=== PATIENT | female | born 1965 | race American Indian/Alaskan Native ===

== ENCOUNTER 2016-12-14 16:02 | Inpatient (IN) | payer BC ==
[2016-12-14 18:49] LABS: RBC URINE 3 /hpf (0-3); URINE BACTERIA RARE (<OCC); URINE BILIRUBIN NEGATIVE (NEGATIVE); URINE BLOOD NEGATIVE (NEGATIVE); URINE COLOR Yellow (YELLOW); URINE GLUCOSE (UA) NORMAL (Normal); URINE KETONE TRACE mg/dL (NEGATIVE); URINE LEUKOCYTE ESTERASE NEG Leu/uL (Negative); URINE PROTEIN NEGATIVE (NEGATIVE); WBC URINE 1 /hpf (0-5)
[2016-12-14 19:49] LABS: BASO # 0.1 K/uL (0.0-0.2); BASO % 0.7 % (0.0-2.0); EOS # 0.1 K/uL (0.0-0.7); EOS % 0.3 % (0.0-4.0); HEMATOCRIT 34.4 % (34.0-47.0); MEAN CELL VOLUME 91.6 fL (81.0-99.0); MEAN CORPUSCULAR HEMOGLOBIN 30.8 pg (27.0-31.0); MEAN CORPUSCULAR HGB CONC 33.7 g/dL (33.0-37.0); MEAN PLATELET VOLUME 7.6 fL (7.2-11.7); MONO # 1.1 K/uL (0.0-0.8); MONO % 6.7 % (0.0-10.0); RED CELL DISTRIBUTION WIDTH 13.2 % (11.5-14.5); WHITE BLOOD COUNT 16.7 K/uL (4.8-10.8)
[2016-12-14 19:54] LABS: CHLORIDE 105 mmol/L (98-107); SODIUM 138 mmol/L (132-148)
[2016-12-14 19:55] LABS: POTASSIUM 3.6 mmol/L (3.6-5.2)
[2016-12-14 19:56] LABS: GFR AFRICAN-AMERICAN > 60
[2016-12-14 19:57] LABS: ALB/GLOB RATIO 1.2 (1.0-2.1); ALKALINE PHOSPHATASE 68 U/L (38-126); ALT/SGPT 21 U/L (9-52); AST/SGOT 14 U/L (14-36); BILIRUBIN,TOTAL 0.7 mg/dL (0.2-1.3); BLOOD UREA NITROGEN 11 mg/dL (7-17); CALCIUM 8.4 mg/dl (8.6-10.4); CARBON DIOXIDE 23 mmol/L (22-30); GLUCOSE,RANDOM 109 mg/dL (65-105); TOTAL PROTEIN 6.9 g/dL (6.3-8.3)
--- NOTE | 2016-12-14 20:24 | C.PDOC ---
History Of Present Illness 51 year old patient, with a history of diverticulitis, presents to the ED complaining of cramping lower abdominal pain for the past 2 weeks. Patient denies risk of STD, fever, chills, nausea, vomiting, diarrhea, urinary symptoms , vaginal bleeding or discharge. Time Seen by Provider: 12/14/16 19:18 Chief Complaint (Nursing): Abdominal Pain History Per: Patient History/Exam Limitations: no limitations Onset/Duration Of Symptoms: Other (2 weeks) Current Symptoms Are (Timing): Still Present Context: Other Severity: Mild Pain Scale Rating Of: 3 Location Of Pain/Discomfort: Suprapubic Radiation Of Pain To:: None Quality Of Discomfort: Cramping, "Pain" Exacerbating Factors: None Alleviating Factors: None Last Bowel Movement: Today Recent travel outside of the [place]: No Abnormal Vaginal Bleeding: No Past Medical History Reviewed: Historical Data, Nursing Documentation, Vital Signs Vital Signs: Last Vital Signs Temp 99.2 F 12/14/16 21:28 Pulse 80 12/14/16 21:28 Resp 20 12/14/16 21:28 BP 126/77 12/14/16 21:28 Pulse Ox 99 12/14/16 22:50 - Medical History PMH: Diverticulitis Family History: States: Unknown Family Hx - Social History Hx Alcohol Use: Yes Hx Substance Use: No - Immunization History Hx Influenza Vaccination: Yes Review Of Systems Except As Marked, All Systems Reviewed And Found Negative. Constitutional: Negative for: Fever, Chills Gastrointestinal: Positive for: Abdominal Pain (lower). Negative for: Nausea, Vomiting Genitourinary: Negative for: Vaginal Discharge, Vaginal Bleeding Musculoskeletal: Negative for: Back Pain Physical Exam - Physical Exam Appears: Non-toxic, No Acute Distress Skin: Warm, Dry Head: Atraumatic, Normacephalic Eye(s): bilateral: PERRL, EOMI Neck: Normal ROM, Supple Chest: Symmetrical Cardiovascular: Rhythm Regular Respiratory: Normal Breath Sounds, No Rales, No Rhonchi, No Wheezing Gastrointestinal/Abdominal: Soft, Tenderness (vague lower abdominal discomfort) , No Guarding, No Rebound Back: Normal Inspection, No CVA Tenderness Extremity: Normal ROM Neurological/Psych: Oriented x3, Normal Speech, Normal Cognition Gait: Steady ED Course And Treatment - Laboratory Results Result Diagrams: 12/14/16 19:46 12/14/16 19:46 Lab Interpretation: Abnormal (UA neg.) Urine POC: Negative ECG: Interpreted By Me ECG Rhythm: Sinus Rhythm ECG Interpretation: Normal Rate From EC O2 Sat by Pulse Oximetry: 99 (bpm) Pulse Ox Interpretation: Normal - CT Scan/US Abdomen/Pelvis CT Other Rad Studies (CT/US): Read By Radiologist (Kimo Winter MD), Radiology Report Reviewed CT/US Interpretation: IMPRESSION: Findings are consistent with acute appendicitis without periappendiceal abscess or free air. Small. free fluid surrounding the appendix which extends into the right aspect of the cul-de-sac. Progress Note: Plan: Abdomen/Pelvis CT. Labs. Obstructive Series Reevaluation Time: 22:43 Reassessment Condition: Improved - Physician Consult Information Outcome Of Conversation: 2229: d/w Dr. Story- Surgery Housekeeper Cleaning Cooking- ok to admit. 2240: d/w Surg Philipp Medical Decision Making Medical Decision Making: cipro flagyl due to PCN allergy Disposition Doctor Will See Patient In The: Hospital Counseled Patient/Family Regarding: Studies Performed, Diagnosis - Disposition Disposition: HOSPITALIZED Disposition Time: 22:44 Condition: GOOD - Clinical Impression Clinical Impression: Appendicitis - Scribe Statement The provider has reviewed the documentation as recorded by the Wildaibtr Barrett Provider Attestation: All medical record entries made by the [facility] were at my direction and personally dictated by me. I have reviewed the chart and agree that the record accurately reflects my personal performance of the history, physical exam, medical decision making, and the department course for this patient. I have also personally directed, reviewed, and agree with the discharge instructions and disposition.
[2016-12-14] MEDS ORDERED: Iodixanol 320 mg/ml 150 ml Bottle IV ONE (20:43)
[2016-12-14] MEDS ORDERED: Piperacillin/Tazobact 3.375 GM in Sodium Chloride 100 ML IVPB STA (22:39)
[2016-12-14] MEDS ORDERED: Ciprofloxacin 400mg/200ml D5W 200 ML IV STA (22:49)
[2016-12-14] MEDS ORDERED: metroNIDAZOLE IV 500 mg/100 ml 100 ML IV ONE (22:52)
[2016-12-14] MEDS ORDERED: metroNIDAZOLE IV 500 mg/100 ml 100 ML ONE (22:55)
[2016-12-14] MEDS ORDERED: metroNIDAZOLE IV 500 mg/100 ml 100 ML IV SCH (23:00)
--- NOTE | 2016-12-15 01:09 | CP.PCM.HP ---
<IftikharJennifer - Last Filed: 12/15/16 07:04> History of Present Illness - History of Present Illness History of Present Illness: GENERAL SURGERY HISTORY AND PHYSICAL FOR DR. GRIMES 51yo F with PMHx of diverticulitis presents to the ED with abdominal pain. The pain is located in the area inferior to the umbilicus and suprapubic area. The pain began 2 nights ago and was mild. Then Wednesday morning, the pain worsened. She initially thought it was just due to gas because she was burping and passing a lot of flatus. She drank some bran tea and took Motrin 800 which allowed her to sleep. She denies nausea, vomiting, or diarrhea. Her last BM was earlier today. She denies CP or SOB. PMHx: diverticulitis, last colonoscopy was 5 years ago, no diverticulitis flare ups since then; torn meniscus in knee, herniated disks Surgeries: Laparoscopic right ovarian cyst removal Allergies: penicillins Social history: social etoh, smokes 1/2 PPD, denies illicit drug use Present on Admission - Present on Admission Any Indicators Present on Admission: No Review of Systems - Review of Systems All systems: reviewed and no additional remarkable complaints except (as per HPI ) Past Patient History - Infectious Disease Hx of Infectious Diseases: None - Past Social History Smoking Status: Light Smoker < 10 Cigarettes Daily - MUSCULOSKELETAL/RHEUMATOLOGICAL Other/Comment: bulging discs, pinch nerver - GASTROINTESTINAL Hx Diverticulitis: Yes - PSYCHIATRIC Hx Substance Use: No - SURGICAL HISTORY Hx Surgeries: Yes Other/Comment: Cyst removed from right ovay in 1996 - ANESTHESIA Hx Anesthesia: Yes Hx Anesthesia Reactions: No Meds Allergies/Adverse Reactions: Allergies Allergy/AdvReac Type Severity Reaction Status Date / Time Penicillins Allergy Verified 12/14/16 22:45 Physical Exam - Constitutional Appears: Well, Non-toxic, No Acute Distress - Head Exam Head Exam: ATRAUMATIC, NORMAL INSPECTION - Eye Exam Eye Exam: EOMI, Normal appearance - Respiratory Exam Respiratory Exam: NORMAL BREATHING PATTERN. absent: Respiratory Distress - Cardiovascular Exam Cardiovascular Exam: +S1, +S2 - GI/Abdominal Exam GI & Abdominal Exam: Soft, Tenderness (tender in LLQ, suprapubic area and RLQ ( most tender)). absent: Distended, Firm, Guarding, Rebound, Rigid - Extremities Exam Extremities exam: Positive for: normal inspection. Negative for: pedal edema - Neurological Exam Neurological exam: Alert, CN II-XII Intact, Oriented x3 - Psychiatric Exam Psychiatric exam: Normal Affect, Normal Mood - Skin Skin Exam: Dry, Normal Color, Warm Results - Vital Signs Recent Vital Signs: Last Vital Signs Temp 99.4 F 12/15/16 00:11 Pulse 82 12/15/16 00:11 Resp 18 12/15/16 00:11 BP 126/77 12/14/16 21:28 Pulse Ox 99 12/15/16 00:11 - Labs Result Diagrams: 12/14/16 19:46 12/14/16 19:46 Assessment & Plan - Assessment and Plan (Free Text) Assessment: 51yo F with PMHx of diverticulitis presents with abdominal pain and was found to have appendicitis - Afebrile, VSS - Leukocytosis WBC 16.7 - CT: appendix is moderately diffusely dilated, diameter 10-13mm, consistent with acute appendicitis, small free fluid surrounding appendix - NPO - IV Fluids - Zofran and Morphine PRN - Cipro & Flagyl - Consent obtained - OR Tues for laparoscopic appendectomy - Discussed plan with Dr. Cornelio Buitrago PGY-2 <Lm Grimes - Last Filed: 12/20/16 10:40> Results - Vital Signs Recent Vital Signs: Last Vital Signs Temp 98.2 F 12/17/16 17:10 Pulse 85 12/17/16 17:10 Resp 20 12/17/16 17:10 BP 173/93 H 12/17/16 17:10 Pulse Ox 98 12/17/16 17:10 - Labs Result Diagrams: 12/17/16 05:58 12/17/16 05:58 Attending/Attestation - Attestation I have personally seen and examined this patient.: Yes I have fully participated in the care of the patient.: Yes I have reviewed all pertinent clinical information: Yes Notes (Text): 12/20/16 10:40 Pt was seen and examined at bedside on 12/15/16 Agree with above note and assessment Pt with Acute Appendicitis OR for Lap Appendectomy possible Open Consent C.w IV antibiotics Plan d.w pt in detail Risk and benefit explained in detail.
[2016-12-15] MEDS: Sodium Chloride 0.9% 1,000 ML IV SCH ×3 (01:30→19:28)
[2016-12-15] MEDS: Ciprofloxacin 400mg/200ml D5W 200 ML IVPB SCH ×3 (01:45→15:05)
[2016-12-15] MEDS: metroNIDAZOLE IV 500 mg/100 ml 100 ML IVPB SCH ×3 (05:45→21:00)
[2016-12-15 07:49] LABS: BASO # 0.1 K/uL (0.0-0.2); BASO % 0.8 % (0.0-2.0); EOS # 0.1 K/uL (0.0-0.7); EOS % 0.8 % (0.0-4.0); HEMATOCRIT 33.2 % (34.0-47.0); LYMPH % 30.7 % (20.0-40.0); MEAN CELL VOLUME 91.8 fL (81.0-99.0); MEAN CORPUSCULAR HEMOGLOBIN 30.2 pg (27.0-31.0); MEAN CORPUSCULAR HGB CONC 32.9 g/dL (33.0-37.0); MEAN PLATELET VOLUME 8.1 fL (7.2-11.7); MONO % 7.4 % (0.0-10.0); NRBC % 0.1 % (0.0-2.0); RED CELL DISTRIBUTION WIDTH 13.7 % (11.5-14.5); WHITE BLOOD COUNT 13.1 K/uL (4.8-10.8)
[2016-12-15 07:52] LABS: INR 1.2
[2016-12-15 07:55] LABS: CHLORIDE 108 mmol/L (98-107)
[2016-12-15 07:56] LABS: POTASSIUM 3.5 mmol/L (3.6-5.2); SODIUM 139 mmol/L (132-148)
[2016-12-15 07:58] LABS: GFR AFRICAN-AMERICAN > 60
[2016-12-15 07:59] LABS: BLOOD UREA NITROGEN 7 mg/dL (7-17); CALCIUM 7.9 mg/dl (8.6-10.4); CARBON DIOXIDE 21 mmol/L (22-30); GLUCOSE,RANDOM 87 mg/dL (65-105)
--- NOTE | 2016-12-15 08:33 | CT ---
PROCEDURE: CT Abdomen and Pelvis without intravenous contrast HISTORY: Right lower quadrant abdominal pain COMPARISON: None. TECHNIQUE: Axial computed tomographic images of the abdomen and pelvis were performed with intravenous contrast. Subsequently, sagittal and coronal reformatted images were created and reviewed.. Radiation dose: Total exam DLP = 530 mGy-cm. This CT exam was performed using one or more of the following dose reduction techniques: Automated exposure control, adjustment of the mA and/or kV according to patient size, and/or use of iterative reconstruction technique. FINDINGS: LOWER THORAX: Unremarkable. LIVER: Unremarkable. No gross lesion or ductal dilatation. GALLBLADDER AND BILE DUCTS: Collapsed gallbladder. PANCREAS: Unremarkable. No gross lesion or ductal dilatation. SPLEEN: Unremarkable. ADRENALS: Unremarkable. No mass. KIDNEYS AND URETERS: 1 centimeter low-attenuation lesion in the midpole of the right kidney demonstrating a Hounsfield unit attenuation of 36, indeterminate. VASCULATURE: Unremarkable. No aortic aneurysm. BOWEL: Unremarkable. No obstruction. No gross mural thickening. APPENDIX: Moderate diffuse distension of the appendix measuring up to 10-13 millimeters with minimal adjacent fat stranding and fluid concerning for a a moderate acute appendicitis. PERITONEUM: Small amount of free fluid in the pelvis. LYMPH NODES: Unremarkable. No enlarged lymph nodes. BLADDER: Unremarkable. REPRODUCTIVE: Unremarkable. BONES: No acute fracture. OTHER FINDINGS: None. IMPRESSION: Findings concerning for an acute appendicitis without periappendiceal abscess or free air. Small amount of free fluid surrounding the appendix which extends into the right aspect of the pelvic cul-de-sac. Additional findings as above. These findings were preliminarily reported at 10:19 p.m. on 12/14/[address] Kimo Winter from [employer].
[2016-12-15] MEDS: Potassium Chloride 10 mEq 100 ML IVPB SCH ×2 (10:22→12:20)
--- NOTE | 2016-12-15 11:45 | RAD ---
PROCEDURE: Radiographs of the chest and abdomen (obstructive series) HISTORY: abd pain COMPARISON: CT abdomen and pelvis with IV contrast performed 12/14/16 FINDINGS: CHEST: The cardiomediastinal silhouette appears within normal limits of size. No focal consolidation, significant pleural effusion, or definite pneumothorax identified. Please note that chest x-ray has limited sensitivity for the detection of pulmonary masses. ABDOMEN AND PELVIS: Nonobstructive bowel gas pattern. No definite free air. Degenerative changes. IMPRESSION: Unremarkable radiographs of chest and abdomen. No evidence of mechanical bowel obstruction.
[2016-12-15] MEDS ORDERED: Midazolam 2 MG/2 ML VIAL ONE (14:21)
[2016-12-15] MEDS ORDERED: Propofol 10 mg/ml Inj (20 ML) ONE (14:21)
[2016-12-15] MEDS ORDERED: Rocuronium 10 mg/ml (5 ml) ONE (14:41)
[2016-12-15] MEDS ORDERED: Succinylcholine Chloride 20 mg/ml Syr (5 ml) IV ONE (14:41)
[2016-12-15] MEDS ORDERED: Lactated Ringer's 1,000 ML IV ONE ×2 (14:45→15:56)
[2016-12-15] MEDS ORDERED: Lidocaine 1% Inj (20ml) ONE (14:53)
[2016-12-15] MEDS ORDERED: Bupivacaine/Epi 0.25%-1:200,000 10 ml PF inj IJ ONE (14:53)
[2016-12-15] MEDS ORDERED: Neostigmine Methylsulfate 3mg/3ml Syringe IV ONE (16:03)
[2016-12-15] MEDS: HYDROmorphone 0.5 mg/0.5 ml ISec IVP PRN ×3 (16:58→17:35)
--- NOTE | 2016-12-15 17:05 | PCM.SURG1 ---
Surgeon's Initial Post Op Note - Surgeon's Notes Surgeon: Dr. Grimes Picker Machine Operator: Dr. Mora PGY-1, Laly OMS-3 Type of Anesthesia: General Endo Pre-Operative Diagnosis: acute appendicitis Operative Findings: see operative report Post-Operative Diagnosis: see operative report Operation Performed: extensive lysis of adhesions. laparoscopic appendectomy Specimen/Specimens Removed: appendix Estimated Blood Loss: EBL {In ML}: 50 Blood Products Given: N/A Drains Used: Noel Post-Op Condition: Good Date of Surgery/Procedure: 12/15/16 Time of Surgery/Procedure: 15:00
[2016-12-15] MEDS ORDERED: HYDROmorphone 0.5 mg/0.5 ml ISec IVP PRN (17:53)
[2016-12-15] MEDS ORDERED: HYDROmorphone 0.5 mg/0.5 ml ISec ONE (17:53)
--- NOTE | 2016-12-15 18:53 | CARD ---
APPROVED REPORT EKG Measurement Heart [id number] <Conclusion> Normal sinus rhythm Nonspecific T wave abnormality Abnormal ECG
[2016-12-15 18:57] VITALS: RESP 20
[2016-12-16] MEDS: Ciprofloxacin 400mg/200ml D5W 200 ML IVPB SCH ×2 (00:54→15:30)
[2016-12-16] MEDS: Sodium Chloride 0.9% 1,000 ML IV SCH ×4 (01:46→17:15)
[2016-12-16] MEDS: metroNIDAZOLE IV 500 mg/100 ml 100 ML IVPB SCH ×3 (05:57→21:34)
[2016-12-16 07:09] LABS: CHLORIDE 106 mmol/L (98-107); POTASSIUM 3.3 mmol/L (3.6-5.2); SODIUM 140 mmol/L (132-148)
[2016-12-16 07:12] LABS: BLOOD UREA NITROGEN 6 mg/dL (7-17); CALCIUM 8.4 mg/dl (8.6-10.4); CARBON DIOXIDE 22 mmol/L (22-30); GFR AFRICAN-AMERICAN > 60; GLUCOSE,RANDOM 130 mg/dL (65-105)
[2016-12-16 07:18] LABS: BASO % 0.3 % (0.0-2.0); EOS % 0.2 % (0.0-4.0); LYMPH # 3.1 K/uL (1.0-4.3); LYMPH % 24.8 % (20.0-40.0); MEAN CELL VOLUME 91.4 fL (81.0-99.0); MEAN CORPUSCULAR HGB CONC 32.9 g/dL (33.0-37.0); MONO # 0.8 K/uL (0.0-0.8); MONO % 6.3 % (0.0-10.0); RED CELL DISTRIBUTION WIDTH 13.3 % (11.5-14.5); WHITE BLOOD COUNT 12.3 K/uL (4.8-10.8)
[2016-12-16] MEDS: Oxycodone/Acetaminophen 5/325 mg Tab PO PRN (21:33)
--- NOTE | 2016-12-17 00:05 | CP.PCM.PN ---
<Edil Mora - Last Filed: 12/17/16 00:03> Subjective - Date & Time of Evaluation Date of Evaluation: 12/17/16 Time of Evaluation: 06:45 - Subjective Subjective: Pt S&E. NAEO. Tolerating diet. Ambulating. 60cc's WENDY output, serosanguinous. Objective - Vital Signs/Intake and Output Vital Signs (last 24 hours): Temp Pulse Resp BP Pulse Ox 98.3 F 85 20 167/84 H 97 12/16/16 16:00 12/16/16 16:00 12/16/16 16:00 12/16/16 16:00 12/16/16 16:00 Intake and Output: 12/16/16 12/17/16 18:59 06:59 Intake Total 2730 1200 Output Total 120 20 Balance 2610 1180 - Medications Medications: Current Medications Sodium Chloride (Sodium Chloride 0.9%) 1,000 mls @ 125 mls/hr IV .Q8H BETZY Last Admin: 12/16/16 17:15 Dose: 125 mls/hr Ciprofloxacin (Cipro 400mg/200ml Dsw) 200 mls @ 133 mls/hr IVPB Q12H BETZY Last Admin: 12/16/16 15:30 Dose: 133 mls/hr Metronidazole (Flagyl) 100 mls @ 100 mls/hr IVPB Q8 BETZY Last Admin: 12/16/16 21:34 Dose: 100 mls/hr Ondansetron HCl (Zofran Inj) 4 mg IVP Q4 PRN PRN Reason: Nausea/Vomiting Oxycodone/Acetaminophen (Percocet 5/325 Mg Tab) 2 tab PO Q6H PRN PRN Reason: Pain, moderate (4-7) Stop: 12/19/16 13:11 Last Admin: 12/16/16 21:33 Dose: 2 tab Pneumococcal Polyvalent Vaccine (Pneumovax 23 Vaccine) 0.5 ml IM .ONCE ONE Stop: 12/17/16 10:01 - Labs Labs: 12/16/16 06:55 12/16/16 06:55 PT 13.5 SECONDS (9.7-12.2) H 12/15/16 07:34 INR 1.2 12/15/16 07:34 APTT 26 SECONDS (21-34) 12/15/16 07:34 - Constitutional Appears: No Acute Distress - Head Exam Head Exam: NORMOCEPHALIC - Eye Exam Eye Exam: Normal appearance - ENT Exam ENT Exam: Mucous Membranes Moist - Respiratory Exam Respiratory Exam: NORMAL BREATHING PATTERN - Cardiovascular Exam Cardiovascular Exam: +S1, +S2 - Neurological Exam Neurological Exam: Alert, Awake, Oriented x3 - Psychiatric Exam Psychiatric exam: Normal Mood - Skin Skin Exam: Dry, Intact, Warm Assessment and Plan - Assessment and Plan (Free Text) Assessment: 51F s/p laparoscopic appendectomy POD1 -Regular diet -C/w IV abx -Analgesics/Anti-emetic -Encourage ambulation -Encourage IS use -Probable d/c tomorrow if WBC normalizes -Shalom Grimes <Lm Grimes - Last Filed: 12/20/16 10:50> Objective - Vital Signs/Intake and Output Vital Signs (last 24 hours): Temp Pulse Resp BP Pulse Ox 98.2 F 85 20 173/93 H 98 12/17/16 17:10 12/17/16 17:10 12/17/16 17:10 12/17/16 17:10 12/17/16 17:10 - Labs Labs: 12/17/16 05:58 12/17/16 05:58 PT 13.5 SECONDS (9.7-12.2) H 12/15/16 07:34 INR 1.2 12/15/16 07:34 APTT 26 SECONDS (21-34) 12/15/16 07:34 Attending/Attestation - Attestation I have personally seen and examined this patient.: Yes I have fully participated in the care of the patient.: Yes I have reviewed all pertinent clinical information, including history, physical exam and plan: Yes Notes (Text): 12/20/16 10:49 Pt was seen and examined at bedside on 12/17/16 Agree with above note and assessment
[2016-12-17] MEDS: Ciprofloxacin 400mg/200ml D5W 200 ML IVPB SCH ×2 (01:15→12:56)
[2016-12-17] MEDS: Sodium Chloride 0.9% 1,000 ML IV SCH (01:24)
[2016-12-17] MEDS ORDERED: Potassium Chloride 20 mEq ER Tab PO SCH ×2 (02:48→10:00)
[2016-12-17] MEDS ORDERED: Potassium Chloride 20 mEq ER Tab PO ONE (03:03)
[2016-12-17] MEDS: metroNIDAZOLE IV 500 mg/100 ml 100 ML IVPB SCH ×2 (05:55→14:45)
[2016-12-17 06:06] LABS: BASO # 0.1 K/uL (0.0-0.2); BASO % 0.9 % (0.0-2.0); EOS # 0.1 K/uL (0.0-0.7); EOS % 1.2 % (0.0-4.0); HEMATOCRIT 35.5 % (34.0-47.0); LYMPH % 30.1 % (20.0-40.0); MEAN CELL VOLUME 91.1 fL (81.0-99.0); MEAN CORPUSCULAR HEMOGLOBIN 30.5 pg (27.0-31.0); MEAN CORPUSCULAR HGB CONC 33.5 g/dL (33.0-37.0); MEAN PLATELET VOLUME 8.1 fL (7.2-11.7); MONO # 0.8 K/uL (0.0-0.8); MONO % 7.8 % (0.0-10.0); RED CELL DISTRIBUTION WIDTH 13.3 % (11.5-14.5); WHITE BLOOD COUNT 9.9 K/uL (4.8-10.8)
[2016-12-17 06:20] LABS: CHLORIDE 107 mmol/L (98-107)
[2016-12-17 06:21] LABS: POTASSIUM 3.7 mmol/L (3.6-5.2); SODIUM 141 mmol/L (132-148)
[2016-12-17 06:23] LABS: GFR AFRICAN-AMERICAN > 60
[2016-12-17 06:24] LABS: BLOOD UREA NITROGEN 6 mg/dL (7-17); CALCIUM 8.4 mg/dl (8.6-10.4); CARBON DIOXIDE 21 mmol/L (22-30); GLUCOSE,RANDOM 86 mg/dL (65-105)
[2016-12-17 09:33] VITALS: O2SAT 98
[2016-12-17] MEDS ORDERED: Pneumococcal 23-Valent Vaccine IM ONE (10:00)
[2016-12-17] MEDS: Oxycodone/Acetaminophen 5/325 mg Tab PO PRN (13:02)
--- NOTE | 2016-12-17 16:22 | CP.PCM.DIS ---
Provider - Provider Date of Admission: 12/14/16 22:38 Attending physician: Lm Grimes MD Consults: none Time Spent in preparation of Discharge (in minutes): 30 Hospital Course - Lab Results Lab Results: Most Recent Lab Values WBC 9.9 K/uL (4.8-10.8) 12/17/16 05:58 RBC 3.89 Mil/uL (3.80-5.20) 12/17/16 05:58 Hgb 11.9 g/dL (11.0-16.0) 12/17/16 05:58 Hct 35.5 % (34.0-47.0) 12/17/16 05:58 MCV 91.1 fL (81.0-99.0) 12/17/16 05:58 MCH 30.5 pg (27.0-31.0) 12/17/16 05:58 MCHC 33.5 g/dL (33.0-37.0) 12/17/16 05:58 RDW 13.3 % (11.5-14.5) 12/17/16 05:58 Plt Count 273 K/uL (130-400) 12/17/16 05:58 MPV 8.1 fL (7.2-11.7) 12/17/16 05:58 Neut % (Auto) 60.0 % (50.0-75.0) 12/17/16 05:58 Lymph % (Auto) 30.1 % (20.0-40.0) 12/17/16 05:58 [place] % (Auto) 7.8 % (0.0-10.0) 12/17/16 05:58 Eos % (Auto) 1.2 % (0.0-4.0) 12/17/16 05:58 Baso % (Auto) 0.9 % (0.0-2.0) 12/17/16 05:58 Neut # 6.0 K/uL (1.8-7.0) 12/17/16 05:58 Lymph # 3.0 K/uL (1.0-4.3) 12/17/16 05:58 [place] # 0.8 K/uL (0.0-0.8) 12/17/16 05:58 Eos # 0.1 K/uL (0.0-0.7) 12/17/16 05:58 Baso # 0.1 K/uL (0.0-0.2) 12/17/16 05:58 PT 13.5 SECONDS (9.7-12.2) H 12/15/16 07:34 INR 1.2 12/15/16 07:34 APTT 26 SECONDS (21-34) 12/15/16 07:34 Sodium 141 mmol/L (132-148) 12/17/16 05:58 Potassium 3.7 mmol/L (3.6-5.2) 12/17/16 05:58 Chloride 107 mmol/L (98-107) 12/17/16 05:58 Carbon Dioxide 21 mmol/L (22-30) L 12/17/16 05:58 Anion Gap 17 (10-20) 12/17/16 05:58 BUN 6 mg/dL (7-17) L 12/17/16 05:58 Creatinine 0.6 MG/DL (0.7-1.2) L 12/17/16 05:58 Est GFR ( Amer) > 60 12/17/16 05:58 Est GFR (Non-Af Amer) > 60 12/17/16 05:58 Random Glucose 86 mg/dL (65-105) 12/17/16 05:58 Calcium 8.4 mg/dl (8.6-10.4) L 12/17/16 05:58 Total Bilirubin 0.7 mg/dL (0.2-1.3) 12/14/16 19:46 AST 14 U/L (14-36) D 12/14/16 19:46 ALT 21 U/L (9-52) 12/14/16 19:46 Alkaline Phosphatase 68 U/L (38-126) 12/14/16 19:46 Total Protein 6.9 g/dL (6.3-8.3) 12/14/16 19:46 Albumin 3.7 g/dL (3.5-5.0) 12/14/16 19:46 Globulin 3.2 gm/dL (2.2-3.9) 12/14/16 19:46 Albumin/Globulin Ratio 1.2 (1.0-2.1) 12/14/16 19:46 Lipase 75 U/L (23-300) 12/14/16 19:46 Urine Color Yellow (YELLOW) 12/14/16 18:36 Urine Clarity Hazy (Clear) 12/14/16 18:36 Urine pH 6.0 (5.0-8.0) 12/14/16 18:36 Ur Specific [place] 1.024 (1.003-1.030) 12/14/16 18:36 Urine Protein Negative mg/dL (NEGATIVE) 12/14/16 18:36 Urine Glucose (UA) Normal mg/dL (Normal) 12/14/16 18:36 Urine Ketones Trace mg/dL (NEGATIVE) 12/14/16 18:36 Urine Blood Negative (NEGATIVE) 12/14/16 18:36 Urine Nitrate Negative (NEGATIVE) 12/14/16 18:36 Urine Bilirubin Negative (NEGATIVE) 12/14/16 18:36 Urine Urobilinogen 4.0 mg/dL (0.2-1.0) H 12/14/16 18:36 Ur Leukocyte Esterase Neg Kristina/uL (Negative) 12/14/16 18:36 Urine WBC (Auto) 1 /hpf (0-5) 12/14/16 18:36 Urine RBC (Auto) 3 /hpf (0-3) 12/14/16 18:36 Ur Squamous Epith Cells 7 /hpf (0-5) H 12/14/16 18:36 Urine Bacteria Rare (<OCC) 12/14/16 18:36 Urine HCG, Qual Negative (NEGATIVE) 12/14/16 18:36 Blood Type B POSITIVE 12/15/16 11:22 Antibody Screen Negative 12/15/16 11:22 - Hospital Course Hospital Course: 51yo F with PMHx of diverticulitis and herniated disks presented to the ED with abdominal pain inferior to umbilicus on 12/14/16. She did not have any nausea, vomiting, or diarrhea. She was afebrile but had leukocytosis of WBC 16.7. CT Abd /Pelvis showed appendix was moderately diffusely dilated, diameter 10-13mm, consistent with acute appendicitis with small free fluid surrounding appendix. She was made NPO, given IV Fluids, Zofran and Morphine PRN, Cipro & Flagyl. The next day, she was taken to the OR for laparoscopic appendectomy with extensive lysis of adhesions. A giana drain was left. Pathology report showed acute appendicitis with periappendicitis. On POD#1, her WBC was still mildly elevated at 12.3 and she was kept one more day for IV Antibiotics. On POD#2, her WBC had normalized, she was ambulating in the halls, tolerating diet without difficulty. Her giana drain was removed and she was discharged home to follow up with Dr. Grimes in his office. - Date & Time of H&P Date of H&P: 12/14/ Discharge Exam - Head Exam Head Exam: ATRAUMATIC, NORMAL INSPECTION, NORMOCEPHALIC - Eye Exam Eye Exam: EOMI, Normal appearance - Respiratory Exam Respiratory Exam: NORMAL BREATHING PATTERN. absent: Respiratory Distress - Cardiovascular Exam Cardiovascular Exam: +S1, +S2 - GI/Abdominal Exam GI & Abdominal Exam: Soft, Tenderness (mild tenderness around incision sites, normal in post operative period). absent: Distended, Firm, Guarding, Rebound, Rigid - Neurological Exam Neurological exam: Alert, CN II-XII Intact, Oriented x3 - Psychiatric Exam Psychiatric exam: Normal Affect, Normal Mood - Skin Skin Exam: Normal Color, Warm Discharge Plan - Follow Up Plan Condition: GOOD Disposition: HOME/ ROUTINE Instructions: Laparoscopic Appendectomy (DC) Additional Instructions: Follow up with Dr. Grimes in his office in 1-2 weeks, call to make appointment Avoid heavy lifting for 4 weeks, otherwise resume regular activity Resume regular diet You may shower but do not take a bath or swim Keep dressings clean and dry. You may remove the top dressing in 3 days. Leave white strips in place. They will fall of on their own over time. If you have worsening pain, fever, vomiting, return to the ED Referrals: Lm Grimes MD [Staff Provider] - Clinical Quality Measures - Date & Time of Discharge Summary Date of Discharge Summary: 12/17/16 Time of Discharge Summary: 16:32
[2016-12-17 17:11] VITALS: BP 173/93; PULSE 85; TEMP 98.2
--- NOTE | 2016-12-20 12:06 | OP ---
PROCEDURE DATE: 12/15/2016 PREOPERATIVE DIAGNOSES: Acute appendicitis with leukocytosis. POSTOPERATIVE DIAGNOSES: Acute phlegmonous appendicitis with leukocytosis. PROCEDURES DONE: 1. Laparoscopic appendectomy. 2. Laparoscopic extensive lysis of adhesions. SURGEON: Lm Grimes MD MACHINE MOLDER: Edil Mora, PGY-1 resident ANESTHESIA: General endotracheal tube anesthesia. ESTIMATED BLOOD LOSS: Around 50 mL. DRAINS: One Noel drain was placed in the pelvis. COMPLICATIONS: None. INTRAOPERATIVE FINDINGS: The patient had phlegmonous appendicitis with extensive postinfectious adhesions in the right lower quadrant as well as in the pelvis due to the appendicitis and extensive lysis of adhesions was done. INTRAOPERATIVE STEPS: This 51-year-old female who was diagnosed with acute appendicitis with leukocytosis and patient was consented for laparoscopic appendectomy, possible open, brought to the OR, placed supine on the operating table. After induction of the anesthesia, abdomen was prepped and draped in usual sterile fashion. The Shi catheter was placed and the supraumbilical incision was made. After incising skin and subcutaneous tissue and the fascia, the Laura port was placed, pneumo was created. The 12 mm port was placed in the left lower quadrant. Another 5 mm port was placed in suprapubic region. The grasper and dissector was introduced. The patient found to have phlegmon of the appendix and first, extensive lysis of adhesions was done to identify the appendix. Appendix base was identified first and the dissection was continued into the pelvis to find the body as well as the tip of the appendix and appendix was dissected free from the pelvic wall. The hemostasis was achieved and there was no evidence of pelvic collection and the mesoappendix was resected with Harmonic scalpel. Base of the appendix was resected with a RUDY and appendix was taken in EndoCatch bag, taken out through the umbilical port site and set on the table for the pathology. There was a proper hemostasis in each and every part of the procedure. After suction irrigation of the pelvis, periappendicular and perihepatic area, the drain was placed in the pelvis and the drain was secured to the suprapubic port site and all the ports were taken out under vision. Pneumo was deflated. Umbilical port site was closed in 2 layers, the fascia with 0 Vicryl interrupted suture, skin with 4 -0 Monocryl. Dry sterile dressing was applied. The patient tolerated the procedure well. Count of instruments and gauze was correct. There was no apparent complication. The patient was extubated in the OR, sent to the postanesthesia care unit in stable condition. Lm Grimes MD cc: [id number] TT: 12/20/2016 12:05:19 en MTDD
== END 2016-12-17 17:00 | disposition home or self-care (01) | DRG 337 ==
LOC: C.ER 16:02 → C.5T 22:38
PROVIDERS: ADMIT Surgery Surgical Critical Care; ATTEND Surgery Surgical Critical Care
PROC: 0DNW4ZZ Release Peritoneum, Percutaneous Endoscopic Approach (ICD-10-PCS; 2016-12-15)
PROC: 0DTJ4ZZ Resection of Appendix, Percutaneous Endoscopic Approach (ICD-10-PCS; principal; 2016-12-15 11:15)
DX: K35.89 Other acute appendicitis (principal); K66.0 Peritoneal adhesions (postprocedural) (postinfection); F17.210 Nicotine dependence, cigarettes, uncomplicated; Z88.0 Allergy status to penicillin

== ENCOUNTER 2017-06-13 17:14 | Emergency (ER) | payer BC ==
[2017-06-13 17:22] VITALS: BP 147/82; PULSE 90; RESP 18; TEMP 98.8; O2SAT 98
--- NOTE | 2017-06-13 17:36 | C.PDOC ---
History Of Present Illness 52 yr old female presents to the ER for acute exacerbation of chronic left knee pain since last night. Patient reports of known torn meniscus. Patient states she normally takes Motrin for relief and last night took Motrin 800mg. Patient reports of swelling today and limited walking due to pain and pain is made worse with movement. Denies recent trauma, leg pain, foot pain, weakness or numbness. Time Seen by Provider: 06/13/17 17:25 Chief Complaint (Nursing): Lower Extremity Problem/Injury History Per: Patient History/Exam Limitations: no limitations Onset/Duration Of Symptoms: Sudden Onset Past Medical History Reviewed: Historical Data, Nursing Documentation, Vital Signs Vital Signs: Last Vital Signs Temp 98.8 F 06/13/17 17:19 Pulse 90 06/13/17 17:19 Resp 18 06/13/17 17:19 BP 147/82 06/13/17 17:19 Pulse Ox 98 06/13/17 17:39 - Medical History PMH: Diverticulitis Surgical History: Appendectomy - [facility] Procedures RELEASE PERITONEUM, PERCUTANEOUS ENDOSCOPIC APPROACH (12/14/16) RESECTION OF APPENDIX, PERCUTANEOUS ENDOSCOPIC APPROACH (12/14/16) Family History: States: No Known Family Hx - Social History Hx Alcohol Use: Yes Hx Substance Use: No - Immunization History Hx Tetanus Toxoid Vaccination: Yes (2013) Hx Influenza Vaccination: No Hx Pneumococcal Vaccination: No Review Of Systems Except As Marked, All Systems Reviewed And Found Negative. Musculoskeletal: Positive for: Other ((+) Left knee pain.). Negative for: Leg Pain, Foot Pain Neurological: Negative for: Weakness, Numbness Physical Exam - Physical Exam Appears: Non-toxic, No Acute Distress Skin: Warm, Dry, No Rash Extremity: Other (Left Knee - Moderate swelling. No focal tenderness. Reproducible pain with extension. Swelling to the popliteal area.) Pulses: Left Dorsalis Pedis: Normal, Right Dorsalis Pedis: Normal Neurological/Psych: Oriented x3, Normal Speech, Normal Motor, Normal Sensation ED Course And Treatment O2 Sat by Pulse Oximetry: 98 (RA) Pulse Ox Interpretation: Normal Medical Decision Making Medical Decision Making: PLAN: * Percocet PO * Zofran PO * Toradol IM Disposition Counseled Patient/Family Regarding: Diagnosis, Need For Followup, Rx Given - Disposition Referrals: Reilly Paz MD [Staff Provider] - Hernán Dennis MD [Staff Provider] - [facility] [Outside] [facility] [Outside] Disposition: HOME/ ROUTINE Disposition Time: 17:37 Condition: IMPROVED Prescriptions: oxyCODONE/Acetaminophen [Percocet 5/325 mg Tab] 1 tab PO QID PRN #14 tab PRN Reason: Pain Instructions: Swollen Knee Joint (ED), Knee Pain (ED) Forms: [facility] (Portuguese), Work Excuse - Clinical Impression Clinical Impression: Knee pain, Knee swelling - Scribe Statement The provider has reviewed the documentation as recorded by the Joseline Dunham Provider Attestation: All medical record entries made by the Joseline were at my direction and personally dictated by me. I have reviewed the chart and agree that the record accurately reflects my personal performance of the history, physical exam, medical decision making, and the department course for this patient. I have also personally directed, reviewed, and agree with the discharge instructions and disposition. Orthopedic Care Application Of:: Knee Immobilizer
[2017-06-13] MEDS ORDERED: Oxycodone/Acetaminophen 5/325 mg Tab PO STA (17:37)
[2017-06-13] MEDS ORDERED: Oxycodone/Acetaminophen 5/325 mg Tab ONE (17:44)
== END 2017-06-13 17:57 | disposition home or self-care (01) ==
LOC: C.ER 17:14
DX: M25.562 Pain in left knee (principal); M79.89 Other specified soft tissue disorders
CPT/HCPCS: 96372; 99283; J1885